=== PATIENT | male | born 1985 | race Caucasian/White ===

== ENCOUNTER 2022-09-13 21:25 | Inpatient (IN) | payer SELFPAY ==
[2022-09-13 22:03] VITALS: BMI 23.3
[2022-09-14] MEDS ORDERED: METHOCARBAMOL 500 MG TABLET PO PRN (00:14)
[2022-09-14] MEDS ORDERED: IBUPROFEN 600 MG TABLET (FP) PO PRN (00:14)
[2022-09-14] MEDS ORDERED: BENZONATATE 200 MG CAPSULE PO PRN (00:14)
[2022-09-14] MEDS ORDERED: ONDANSETRON *ODT* 4 MG TABLET SL PRN (00:14)
[2022-09-14] MEDS ORDERED: MAG HYDROX/AL HYDROX/SIMETH 30 ML UNIT-DOSE CUP PO PRN (00:14)
[2022-09-14] MEDS ORDERED: POLYETHYLENE GLYCOL (HEALTHYLAX) 3350 17 GM PACKET PO PRN (00:14)
[2022-09-14] MEDS ORDERED: ACETAMINOPHEN 325 MG TABLET (FP) PO PRN (00:14)
[2022-09-14] MEDS ORDERED: diazePAM 5 MG TABLET PO PRN (00:14)
[2022-09-14] MEDS ORDERED: BISMUTH SUBSALICYLATE 524 MG/30 ML PO PRN (00:14)
[2022-09-14] MEDS ORDERED: NICOTINE 10 MG CARTRIDGE (INHALER) IH PRN (00:14)
[2022-09-14] MEDS ORDERED: methaDONE HCL 10 MG TABLET (FOR DETOX USE ONLY) PO ONE (00:14)
[2022-09-14] MEDS ORDERED: LOPERAMIDE HCL 2 MG CAPSULE PO PRN (00:14)
[2022-09-14] MEDS ORDERED: NALOXONE HCL 0.4 MG/ML VIAL IM PRN (00:14)
[2022-09-14] MEDS ORDERED: guaiFENesin 600 MG TABLET.ER (FP) PO PRN (00:14)
[2022-09-14] MEDS ORDERED: NALOXONE HCL (KLOXXADO) 8 MG SPRAY NS PRN (00:14)
[2022-09-14] MEDS ORDERED: MAGNESIUM HYDROX 2400MG/30ML ORAL SUSPENSION 30 ML CUP PO PRN (00:14)
[2022-09-14] MEDS ORDERED: cloNIDine HCL 0.1 MG TABLET PO PRN (00:14)
[2022-09-14] MEDS ORDERED: DICYCLOMINE HCL 10 MG CAPSULE PO PRN (00:14)
[2022-09-14] MEDS ORDERED: BENZOCAINE/MENTHOL (CHLORASEPTIC ) LOZENGE MM PRN (00:14)
[2022-09-14] MEDS ORDERED: IBUPROFEN 400 MG TABLET (FP) PO PRN (00:14)
[2022-09-14] MEDS ORDERED: methaDONE HCL 10 MG TABLET (FOR DETOX USE ONLY) ONE (01:26)
[2022-09-14] MEDS: diazePAM 5 MG TABLET PO SCH ×4 (05:18→22:13)
[2022-09-14] MEDS ORDERED: OXYMETAZOLINE 0.05% NASAL SOLUTION 15 ML BOTTLE NS PRN (10:33)
[2022-09-14] MEDS: NICOTINE 14 MG/24 HOURS TOPICAL PATCH TD SCH (10:37)
[2022-09-14] MEDS: PRENATAL VITAMINS W/ FOLIC ACID TABLET (FP) PO SCH (10:37)
[2022-09-14 13:31] LABS: HEMATOCRIT 41.2 % (35.4-49); HEMOGLOBIN 13.9 GM/dL (11.7-16.9); MCH 28.7 pg (25.7-33.7); MCHC 33.8 g/dl (32.0-35.9); MEAN PLT VOLUME 7.4 fl (7.5-11.1); PLATELET COUNT 262 10^3/uL (134-434); RBC 4.84 M/mm3 (4.00-5.60); RDW 15.3 % (11.9-15.9); WHITE BLOOD COUNT 7.8 K/mm3 (4.0-10.0)
[2022-09-14 14:20] LABS: POTASSIUM 4.2 mmol/L (3.5-5.1)
[2022-09-14 14:32] LABS: BLOOD UREA NITROGEN 11.9 mg/dL (7-18); CALCIUM 8.5 mg/dL (8.5-10.1)
[2022-09-14 14:34] LABS: HIV INTERPRETATION NEGATIVE (NEGATIVE)
[2022-09-14 14:35] LABS: CREATININE 0.7 mg/dL (0.55-1.3)
[2022-09-14 14:37] LABS: BILIRUBIN,TOTAL 0.3 mg/dL (0.2-1); TOT PROT 5.8 g/dl (6.4-8.2)
[2022-09-14] MEDS ORDERED: MELATONIN 5 MG TABLETS PO SCH (22:00)
[2022-09-14] MEDS ORDERED: THIAMINE HCL 100 MG TABLET (FP) PO SCH (22:00)
[2022-09-15] MEDS ORDERED: diazePAM 5 MG TABLET PO SCH (06:00)
[2022-09-15 09:22] VITALS: BP 118/84; PULSE 86; RESP 17; TEMP 97.7
[2022-09-15] MEDS: PRENATAL VITAMINS W/ FOLIC ACID TABLET (FP) PO SCH (10:14)
[2022-09-15] MEDS: NICOTINE 14 MG/24 HOURS TOPICAL PATCH TD SCH (10:16)
[2022-09-15] MEDS ORDERED: ALBUTEROL SO4 HFA INHALER IH PRN (10:37)
[2022-09-15] MEDS ORDERED: PNEUMOC 20-VAL CONJ-DIP CRM/PF 0.5 ML SYRINGE IM ONE (12:00)
[2022-09-16] MEDS ORDERED: diazePAM 5 MG TABLET PO SCH (06:00)
[2022-09-16] MEDS ORDERED: methaDONE HCL 10 MG TABLET (FOR DETOX USE ONLY) PO ONE (10:00)
[2022-09-17] MEDS ORDERED: diazePAM 5 MG TABLET PO ONE (06:00)
[2022-09-18] MEDS ORDERED: methaDONE HCL 10 MG TABLET (FOR DETOX USE ONLY) PO ONE (10:00)
== END 2022-09-15 10:30 | disposition left against medical advice (07) | DRG 770 ==
LOC: YASAS 21:25 → Y6N 09-14 02:19
PROVIDERS: ADMIT Allergy & Immunology; ATTEND Surgery
PROC: HZ2ZZZZ Detoxification Services for Substance Abuse Treatment (ICD-10-PCS; principal; 2022-09-14)
DX: F11.23 Opioid dependence with withdrawal (principal); F13.230 Sedative, hypnotic or anxiolytic dependence with withdrawal, uncomplicated; F17.210 Nicotine dependence, cigarettes, uncomplicated; J45.909 Unspecified asthma, uncomplicated
CPT/HCPCS: 36415; 80053; 85027; 86780; 87389; 87635; 93005; 93010

== ENCOUNTER 2023-01-26 20:51 | Inpatient (IN) | payer SELFPAY ==
[2023-01-26 21:22] VITALS: BMI 20.6
[2023-01-26] MEDS ORDERED: NALOXONE HCL 0.4 MG/ML VIAL IM PRN (22:17)
[2023-01-26] MEDS ORDERED: ONDANSETRON *ODT* 4 MG TABLET SL PRN (22:17)
[2023-01-26] MEDS ORDERED: DICYCLOMINE HCL 10 MG CAPSULE PO PRN (22:17)
[2023-01-26] MEDS ORDERED: POLYETHYLENE GLYCOL (HEALTHYLAX) 3350 17 GM PACKET PO PRN (22:17)
[2023-01-26] MEDS ORDERED: MAG HYDROX/AL HYDROX/SIMETH 30 ML UNIT-DOSE CUP PO PRN (22:17)
[2023-01-26] MEDS ORDERED: BISMUTH SUBSALICYLATE 524 MG/30 ML PO PRN (22:17)
[2023-01-26] MEDS ORDERED: MAGNESIUM HYDROX 2400MG/30ML ORAL SUSPENSION 30 ML CUP PO PRN (22:17)
[2023-01-26] MEDS ORDERED: IBUPROFEN 600 MG TABLET (FP) PO PRN (22:17)
[2023-01-26] MEDS ORDERED: NALOXONE HCL (KLOXXADO) 8 MG SPRAY NS PRN (22:17)
[2023-01-26] MEDS ORDERED: NICOTINE POLACRILEX 2 MG GUM BUC PRN (22:17)
[2023-01-26] MEDS ORDERED: BENZONATATE 200 MG CAPSULE PO PRN (22:17)
[2023-01-26] MEDS ORDERED: LOPERAMIDE HCL 2 MG CAPSULE PO PRN (22:17)
[2023-01-26] MEDS ORDERED: BENZOCAINE/MENTHOL (CHLORASEPTIC ) LOZENGE MM PRN (22:17)
[2023-01-26] MEDS ORDERED: METHOCARBAMOL 500 MG TABLET PO PRN (22:17)
[2023-01-26] MEDS ORDERED: guaiFENesin 600 MG TABLET.ER (FP) PO PRN (22:17)
[2023-01-26] MEDS ORDERED: IBUPROFEN 400 MG TABLET (FP) PO PRN (22:17)
[2023-01-26] MEDS ORDERED: ACETAMINOPHEN 325 MG TABLET (FP) PO PRN (22:17)
[2023-01-26] MEDS ORDERED: hydrOXYzine PAMOATE 25 MG CAPSULE (FP) PO PRN (22:17)
[2023-01-27 06:29] VITALS: RESP 18
[2023-01-27] MEDS ORDERED: PRENATAL VITAMINS W/ FOLIC ACID TABLET (FP) PO SCH (10:00)
[2023-01-27] MEDS ORDERED: NICOTINE 14 MG/24 HOURS TOPICAL PATCH TD SCH (10:00)
[2023-01-27] MEDS ORDERED: ALBUTEROL SO4 HFA INHALER IH PRN (10:25)
[2023-01-27 12:24] LABS: CHLORIDE 107 mmol/L (98-107); POTASSIUM 3.9 mmol/L (3.5-5.1); SODIUM 140 mmol/L (136-145)
[2023-01-27 12:26] LABS: CALCIUM 8.6 mg/dL (8.5-10.1)
[2023-01-27 12:27] LABS: ALBUMIN 2.9 g/dl (3.4-5.0); BLOOD UREA NITROGEN 13.9 mg/dL (7-18); GLUCOSE,RANDOM 108 mg/dL (74-106)
[2023-01-27 12:30] LABS: CREATININE 0.7 mg/dL (0.55-1.3); SGPT/ALT 15 U/L (13-61)
[2023-01-27 12:31] LABS: BILIRUBIN,TOTAL 0.2 mg/dL (0.2-1); TOT PROT 6.4 g/dl (6.4-8.2)
[2023-01-27 12:33] LABS: ALK PHOS 85 U/L (45-117); ANION GAP 5 mmol/L (4-13); CO2 29 mmol/L (21-32); MCH 27.9 pg (25.7-33.7); MCHC 33.4 g/dl (32.0-35.9); MEAN CELL VOLUME 83.3 fl (80-96); MEAN PLT VOLUME 7.6 fl (7.5-11.1); PLATELET COUNT 312 10^3/uL (134-434); RBC 5.04 M/mm3 (4.00-5.60); RDW 15.2 % (11.9-15.9); WHITE BLOOD COUNT 7.2 K/mm3 (4.0-10.0)
[2023-01-27 12:36] LABS: SGOT/AST 14 U/L (15-37)
[2023-01-27 12:52] VITALS: BP 117/73; PULSE 82; TEMP 97.5
[2023-01-27] MEDS ORDERED: cloNIDine HCL 0.1 MG TABLET PO PRN (13:17)
[2023-01-27] MEDS ORDERED: diazePAM 5 MG TABLET PO PRN ×2 (13:39→13:41)
[2023-01-27] MEDS ORDERED: methaDONE HCL 10 MG TABLET (FOR DETOX USE ONLY) PO ONE (13:45)
[2023-01-27] MEDS ORDERED: diazePAM 5 MG TABLET PO SCH (17:00)
[2023-01-27] MEDS ORDERED: MELATONIN 5 MG TABLETS PO SCH (22:00)
[2023-01-27] MEDS ORDERED: THIAMINE HCL 100 MG TABLET (FP) PO SCH (22:00)
[2023-01-29] MEDS ORDERED: diazePAM 5 MG TABLET PO SCH (06:00)
[2023-01-29] MEDS ORDERED: methaDONE HCL 10 MG TABLET (FOR DETOX USE ONLY) PO ONE (10:00)
[2023-01-30] MEDS ORDERED: diazePAM 5 MG TABLET PO SCH (06:00)
[2023-01-31] MEDS ORDERED: diazePAM 5 MG TABLET PO ONE (06:00)
[2023-01-31] MEDS ORDERED: methaDONE HCL 10 MG TABLET (FOR DETOX USE ONLY) PO ONE (10:00)
== END 2023-01-27 15:54 | disposition left against medical advice (07) | DRG 770 ==
LOC: YASAS 20:51 → Y3N 22:41
PROVIDERS: ADMIT Allergy & Immunology; ATTEND Surgery
PROC: HZ2ZZZZ Detoxification Services for Substance Abuse Treatment (ICD-10-PCS; principal; 2023-01-26)
DX: F11.23 Opioid dependence with withdrawal (principal); F13.230 Sedative, hypnotic or anxiolytic dependence with withdrawal, uncomplicated; F14.20 Cocaine dependence, uncomplicated; F17.210 Nicotine dependence, cigarettes, uncomplicated; J45.30 Mild persistent asthma, uncomplicated; Z28.310 Unvaccinated for COVID-19; Z28.9 Immunization not carried out for unspecified reason
CPT/HCPCS: 36415; 80053; 80307; 85027; 86780; 87635